=== PATIENT | female | born 1940 | race Caucasian/White ===

== ENCOUNTER 2018-03-19 16:22 | Emergency (ER) | payer OTHER, BC ==
--- NOTE | 2018-03-19 16:42 | PDOC ---
Rapid Medical Evaluation Chief Complaint: Laceration Time Seen by Provider: 03/19/18 16:38 Medical Evaluation: 03/19/18 16:39 I have performed a brief in person evaluation. The patient presents with a CC of : laceration to the right side of face HPI: Pt is a 77 YO female who states she fell on the sidewalk earlier today and hit the right side of her face and now has a laceration. Tetanus is not UTD. Denies pain, denies LOC, denies being on anticoagulants. PE: Skin: Pt has a 0.5 cm vertical lac to the right side of the face adjacent to the eye. No bleeding. Head: no pain upon palpation to the facial bones. Lungs: Clear Heart: RRR Abd: no pain upon palpation MS: Moves all extremities without difficulty Neuro: Alert Psych: Appropriate affect I have ordered the following: nothing at this time. The patient will proceed to the [facility] for further evaluation. Discharge Disposition - Diagnosis Laceration - Referrals - Patient Instructions - Post Discharge Activity
[2018-03-19 16:44] VITALS: BP 197/84; PULSE 86; TEMP 98; BMI 29.2
[2018-03-19] MEDS ORDERED: DIPHTH,PERTUSS(ACELL),TET 0.5 ML DISP.SYRIN IM ONE (17:13)
--- NOTE | 2018-03-19 17:47 | PDOC ---
History of Present Illness - General Chief Complaint: Laceration Stated Complaint: FALL Time Seen by Provider: 03/19/18 16:38 - History of Present Illness Initial Comments: 77-year-old female comorbidities not current on tetanus presents for evaluation after a slip and fall. She states she was wearing glasses which caused a laceration by her right eye she did not hit her head. She has no other complaints of pain. No headache nausea vomiting or postinjury visual changes. 03/19/18 17:42 Past History - Past Medical History Allergies/Adverse Reactions: Allergies Allergy/AdvReac Type Severity Reaction Status Date / Time No Known Allergies Allergy Verified 03/19/18 16:41 COPD: No - Suicide/Smoking/Psychosocial Hx Smoking History: Never smoked Hx Alcohol Use: No Drug/Substance Use Hx: No Review of Systems - Review of Systems Integumentary: Yes: See HPI *Physical Exam - Vital Signs Last Vital Signs Temp Pulse Resp BP Pulse Ox 98 F 86 16 197/84 H 99 03/19/18 16:41 03/19/18 16:41 03/19/18 16:41 03/19/18 16:41 03/19/18 16:41 - Physical Exam Comments: 03/19/18 17:44 HEAD: NC/ there is a subcentimeter laceration exposing subcutaneous fat on the superior lateral aspect of the skin overlying the right orbit EYES: Conjuntiva clear, PERRL EOMI Ears: Canals and TM's normal NOSE: No d/c THROAT: Moist mucous membrances, oral pharanx clear, uvula midline NECK: Supple without adenopathy CARDIAC: S1 S2 LUNGS: CTA Full and Equal breath sounds ABDOMEN: Soft NT ND MS: Full ROM in all joints without edema NEUROLOGIC: No gross sensory or motor deficits, NVID SKIN: Normal color and temperature no lesions or rashes Medical Decision Making - Medical Decision Making 03/19/18 17:44 Under aseptic technique the laceration was sterilely prepped with Betadine anesthetized with 3 mL of 1% lidocaine without epinephrine 3 interrupted simple 6-0 nylon sutures were used this was tolerated well *DC/Admit/Observation/Transfer Diagnosis at time of Disposition: Laceration - Discharge Dispostion Disposition: HOME Condition at time of disposition: Stable Decision to Admit order: No - Referrals Referrals: Heladio Ramirez MD [Staff Physician] - - Patient Instructions Printed Discharge Instructions: DI for Laceration Repair Additional Instructions: Return to the emergency room should you experience any redness, increasing pain and swelling or drainage from the area of the wound. Sutures stay in place for 7 days and removed at that point. Keep the wound clean and dry for the next 48 hours after which may wash with soap and water and leave the area open to air. You may follow-up with plastic surgery should you feel the need in the next 1-2 days for further evaluation and treatment options - Post Discharge Activity
== END 2018-03-19 18:16 | disposition home or self-care (01) ==
LOC: JERFT 16:22 → JER 16:22 → JERFT 18:16
PROC: 3E0234Z Introduction of Serum, Toxoid and Vaccine into Muscle, Percutaneous Approach (ICD-10-PCS; principal; 2018-03-19)
PROC: 0JQ10ZZ Repair Face Subcutaneous Tissue and Fascia, Open Approach (ICD-10-PCS; 2018-03-19)
DX: S01.81XA Laceration without foreign body of other part of head, initial encounter (principal); W18.39XA Other fall on same level, initial encounter; Y93.89 Activity, other specified; Y92.480 Sidewalk as the place of occurrence of the external cause; Y99.8 Other external cause status
CPT/HCPCS: 12011; 90471; 90715; 99281-25

== ENCOUNTER 2018-03-26 10:17 | Emergency (ER) | payer OTHER, BC ==
[2018-03-26 10:51] VITALS: BP 152/72; PULSE 104; TEMP 92.2; BMI 29.2
--- NOTE | 2018-03-26 12:35 | PDOC ---
History of Present Illness - General Chief Complaint: Suture/Staple Removal(Here) Stated Complaint: SUTURE REMOVAL,SUTURED HERE Time Seen by Provider: 03/26/18 12:16 - History of Present Illness Initial Comments: 03/26/18 12:32 77-year-old female presents for suture removal for sutures that were placed about 7 days ago above the right eyebrow she's had no sequelae since suture placement she is feeling well Past History - Past Medical History Allergies/Adverse Reactions: Allergies Allergy/AdvReac Type Severity Reaction Status Date / Time No Known Allergies Allergy Verified 03/19/18 16:41 Home Medications: Ambulatory Orders NK [No Known Home Medication] 03/26/18 COPD: No - Immunization History Immunization Up to Date: Yes - Suicide/Smoking/Psychosocial Hx Smoking History: Never smoked Hx Alcohol Use: No Drug/Substance Use Hx: No Substance Use Type: None Review of Systems - Review of Systems Constitutional: No: Fever *Physical Exam - Vital Signs Last Vital Signs Temp Pulse Resp BP Pulse Ox 92.2 F L 104 H 16 152/72 95 03/26/18 10:49 03/26/18 10:49 03/26/18 10:49 03/26/18 10:49 03/26/18 10:49 - Physical Exam Comments: 03/26/18 12:33 Mild ecchymosis about the right eye skin normal temperature no induration no indication of infection Moderate Sedation - Procedure Monitoring Vital Signs: Procedure Monitoring Vital Signs Temperature 92.2 F L 03/26/18 10:49 Pulse Rate 104 H 03/26/18 10:49 Respiratory Rate 16 03/26/18 10:49 Blood Pressure 152/72 03/26/18 10:49 O2 Sat by Pulse Oximetry (%) 95 03/26/18 10:49 Medical Decision Making - Medical Decision Making 03/26/18 12:33 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
== END 2018-03-26 12:39 | disposition home or self-care (01) ==
LOC: JERFT 10:17
DX: Z48.817 Encounter for surgical aftercare following surgery on the skin and subcutaneous tissue (principal); Z48.02 Encounter for removal of sutures
CPT/HCPCS: 99281-25